=== PATIENT | female | born 1975 | race African-American/Black ===

== ENCOUNTER 2019-03-12 21:02 | Inpatient (IN) ==
[2019-03-12 21:34] LABS: Basophils % 0.6 % (0.0-0.8); Eosinophils # 0.2 10*3/uL (0.0-0.87); Eosinophils % 3.9 % (0.00-10.9); Hematocrit 41.3 VOL% (35.7-47.0); Hemoglobin 13.5 GM/DL (12.0-16.0); Immature Granulocytes % 0.2 %; Immature Granulocytes Absolute 0.01 #; Lymphocytes # 2.4 10*3/uL (1.4-4.0); Lymphocytes % 45.4 % (21.3-54.2); Mean Corpuscular HGB Conc 32.7 GM/DL (32-36); Mean Corpuscular Hemoglobin 30 PG (27-34); Mean Corpuscular Volume 90.4 FL (87-102); Mean Platelet Volume 10.4 FL (9.6-12.0); Monocytes # 0.5 10*3/uL (0.11-0.8); Monocytes % 8.9 % (1.7-12.7); Neutrophils # 2.2 10*3/uL (1.4-7.4); Platelet Count 270 T/CUMM (130-400); Red Blood Count 4.57 MC/CUMM (3.8-5.5); Red Cell Distribution Width 12.7 % (9.3-17.3); White Blood Count 5.4 T/CUMM (4-12)
[2019-03-12 21:49] LABS: PT Patient Result 10.7 SECS; Partial Thromboplastin Time 23.7 SECS (0-40)
[2019-03-12 21:55] LABS: Albumin 4.1 G/DL (3.4-5.0); Bilirubin,Total 0.4 MG/DL (0.2-1.0); Calcium 8.6 MG/DL (8.5-10.1); Osmolality,Calculated 276.4 MOS/KG (273-304); Potassium 4.2 MMOL/L (3.5-5.1)
[2019-03-13] MEDS ORDERED: ENOXAPARIN 80 MG/0.8 ML SYRINGE SUBCUT STA (00:23)
[2019-03-13] MEDS ORDERED: NITROGLYCERIN 2% OINT 1 INCH/GM PACK TOP STA (00:25)
[2019-03-13] MEDS ORDERED: ONDANSETRON 4 MG/2 ML VIAL IV PRN (00:25)
[2019-03-13] MEDS ORDERED: METOPROLOL TARTRATE 25 MG TABLET PO STA (00:36)
[2019-03-13] MEDS ORDERED: LORazepam 1 MG TABLET PO STA (00:36)
[2019-03-13 01:13] LABS: Free T4 (Free Thyroxine) 0.69 NG/DL (0.76-1.46); Thyroid Stimulating Hormone 9.58 uIU/ml (0.358-3.74)
[2019-03-13] MEDS: SODIUM CHLORIDE 0.9% 1,000 ML IV SCH ×2 (03:48→18:24)
[2019-03-13 10:09] LABS: Troponin I 0.242 NG/ML (0.00-0.045)
[2019-03-13] MEDS ORDERED: DILTIAZEM CD 120 MG CAPSULE PO SCH (12:00)
[2019-03-13] MEDS ORDERED: METOPROLOL SUCCINATE XL 50 MG TABLET PO SCH (12:00)
[2019-03-13] MEDS ORDERED: POTASSIUM CHLORIDE RIDER 10 MEQ in PREMIX 1 EACH IV PRN (12:32)
[2019-03-13] MEDS ORDERED: diphenhydrAMINE CAP 25 MG CAPSULE PO ONE (12:32)
[2019-03-13] MEDS ORDERED: MAGNESIUM SULF RIDER 2 GM in PREMIX 1 EACH IV PRN (12:32)
[2019-03-13] MEDS ORDERED: DIAZEPAM 5 MG TABLET PO ONE (12:32)
[2019-03-13] MEDS ORDERED: NITROGLYCERIN DRIP 50 MG/250 ML BOTTLE IV ONE (13:03)
[2019-03-13] MEDS ORDERED: VERAPAMIL 5 MG/2 ML VIAL ONE (13:03)
[2019-03-13] MEDS ORDERED: LIDOCAINE 1% 20 ML VIAL ONE (13:03)
[2019-03-13] MEDS ORDERED: HEPARIN/NACL 0.9% 2 UNITS/ML 1,000 ML IV ONE (13:03)
[2019-03-13] MEDS ORDERED: HYDROmorphone 2 MG/1 ML VIAL ONE (13:21)
[2019-03-13] MEDS ORDERED: MIDAZOLAM 2 MG/2 ML VIAL ONE (13:22)
[2019-03-13] MEDS ORDERED: ASPIRIN 325 MG TABLET ONE (13:31)
[2019-03-13] MEDS ORDERED: ENOXAPARIN 30 MG/0.3 ML SYRINGE ONE (13:43)
[2019-03-13] MEDS ORDERED: SODIUM CHLORIDE 0.9% 1,000 ML IV SCH (14:00)
[2019-03-13 18:01] VITALS: BP 131/74
[2019-03-14] MEDS ORDERED: METOPROLOL SUCCINATE XL 50 MG TABLET PO SCH (09:00)
== END 2019-03-13 19:18 | disposition home or self-care (01) | DRG 287 ==
LOC: N.ED 21:02 → N.EDINP 03-13 00:24 → N.TELEN 03-13 01:50
PROVIDERS: ADMIT Internal Medicine Clinical Cardiac Electrophysiology; ATTEND Internal Medicine Clinical Cardiac Electrophysiology
PROC: CLCCHCL (ICD-10-PCS; 2019-03-13 13:15)

== ENCOUNTER 2020-06-30 08:55 | Observation (INO) ==
[2020-06-30] MEDS ORDERED: NITROGLYCERIN SL 0.4 MG TABLET SL PRN (09:29)
[2020-06-30] MEDS ORDERED: NITROGLYCERIN SL 0.4 MG TABLET SL ONE (09:30)
[2020-06-30 09:37] LABS: Basophils % 0.6 % (0.0-0.8); Eosinophils # 0.2 10*3/uL (0.0-0.87); Eosinophils % 3.4 % (0.00-10.9); Hematocrit 44.9 VOL% (35.7-47.0); Hemoglobin 14.8 GM/DL (12.0-16.0); Hgb & Hct Comparison OK; Immature Granulocytes % 0.4 %; Immature Granulocytes Absolute 0.02 #; Lymphocytes # 2.5 10*3/uL (1.4-4.0); Lymphocytes % 46.3 % (21.3-54.2); Mean Corpuscular Hemoglobin 29 PG (27-34); Mean Corpuscular Volume 89.1 FL (87-102); Monocytes # 0.5 10*3/uL (0.11-0.8); Monocytes % 8.8 % (1.7-12.7); Neutrophils # 2.2 10*3/uL (1.4-7.4); Neutrophils % 40.5 % (38.7-73.9); Platelet Count 286 T/CUMM (130-400)
[2020-06-30 09:47] LABS: D-Dimer <= 0.5 MG/L FEU (<=0.5); PT Patient Result 10.6 SECS (9.8-11.9)
[2020-06-30 10:46] LABS: Alanine Aminotransferase 52 U/L (13-56); Albumin/Globulin Ratio 1.1 RATIO (1.1-2.2); Alkaline Phosphatase 68 U/L (45-117); Anion Gap 9.6 MMOL/L (5.0-15.0); Aspartate Amino Transferase 28 U/L (0-37); Bilirubin,Total < 0.39 MG/DL (0.2-1.0); Blood Urea Nitrogen 13 MG/DL (7-18); Carbon Dioxide 24 MMOL/L (21-32); Chloride 107 MMOL/L (98-107); Estimated Glom Filtration Rate 93 ML/MIN; Globulin 3.8 G/DL (2.3-3.5); Osmolality,Calculated 271.8 MOS/KG (273-304); Potassium 3.6 MMOL/L (3.5-5.1); Sodium 137 MMOL/L (136-145)
[2020-06-30 10:48] LABS: C-Reactive Protein Inflamm < 0.29 MG/DL (0-0.32); Lactate Dehydrogenase 231 U/L (84-246)
[2020-06-30] MEDS ORDERED: DEXTROSE 50% 25 GM/50 ML VIAL IV PRN (11:38)
[2020-06-30] MEDS ORDERED: ONDANSETRON 4 MG/2 ML VIAL IV PRN (11:38)
[2020-06-30] MEDS ORDERED: ACETAMINOPHEN 325 MG TABLET PO PRN (11:38)
[2020-06-30] MEDS ORDERED: GLUCAGON 1 MG VIAL IM PRN (11:38)
[2020-06-30] MEDS: ENOXAPARIN 40 MG/0.4 ML SYRINGE SUBCUT SCH (12:16)
[2020-06-30] MEDS ORDERED: ASPIRIN EC 81 MG TABLET PO SCH (19:00)
[2020-06-30] MEDS ORDERED: METOPROLOL SUCCINATE XL 50 MG TABLET PO SCH (21:00)
[2020-06-30] MEDS: METOPROLOL SUCCINATE XL 100 MG TABLET PO SCH (21:30)
[2020-06-30] MEDS: ASCORBIC ACID 500 MG TABLET PO SCH (21:30)
[2020-06-30] MEDS: hydroCHLOROthiazide 25 MG TABLET PO SCH (21:30)
[2020-07-01 04:12] LABS: Basophils % 0.8 % (0.0-0.8); Eosinophils # 0.2 10*3/uL (0.0-0.87); Eosinophils % 4.5 % (0.00-10.9); Hematocrit 41.4 VOL% (35.7-47.0); Hemoglobin 13.8 GM/DL (12.0-16.0); Hgb & Hct Comparison OK; Immature Granulocytes % 0.3 %; Immature Granulocytes Absolute 0.01 #; Lymphocytes # 1.6 10*3/uL (1.4-4.0); Lymphocytes % 41.2 % (21.3-54.2); Mean Corpuscular HGB Conc 33.3 GM/DL (32-36); Mean Corpuscular Hemoglobin 30 PG (27-34); Mean Corpuscular Volume 89.2 FL (87-102); Monocytes # 0.4 10*3/uL (0.11-0.8); Monocytes % 9.3 % (1.7-12.7); Neutrophils # 1.7 10*3/uL (1.4-7.4); Neutrophils % 43.9 % (38.7-73.9); Platelet Count 240 T/CUMM (130-400)
[2020-07-01 04:47] LABS: Anion Gap 7.6 MMOL/L (5.0-15.0); Osmolality,Calculated 272.8 MOS/KG (273-304); Potassium 3.6 MMOL/L (3.5-5.1)
[2020-07-01] MEDS: hydroCHLOROthiazide 25 MG TABLET PO SCH (09:47)
[2020-07-01] MEDS: METOPROLOL SUCCINATE XL 100 MG TABLET PO SCH (09:47)
[2020-07-01] MEDS: ASCORBIC ACID 500 MG TABLET PO SCH (09:47)
[2020-07-01] MEDS ORDERED: POTASSIUM CHLORIDE 10 MEQ TABLET PO SCH (10:00)
[2020-07-01] MEDS: ENOXAPARIN 40 MG/0.4 ML SYRINGE SUBCUT SCH (11:05)
[2020-07-01 11:38] VITALS: BP 125/72
== END 2020-07-01 13:16 | disposition home or self-care (01) ==
LOC: N.EDINP 08:55 → N.ED 08:55 → N.TELEN 14:50
PROVIDERS: ADMIT Internal Medicine Geriatric Medicine; ATTEND Internal Medicine Geriatric Medicine